=== PATIENT | male | born 1950 | race Caucasian/White ===

== ENCOUNTER 2022-05-08 01:56 | Emergency (ER) | payer MEDICARE, SELFPAY ==
[2022-05-08] VITALS (78 sets, daily range): BP systolic 103–175; BP diastolic 48–88; PULSE 64–105; RESP 1–23; TEMP 37–37.3; O2SAT 83–98
--- NOTE | 2022-05-08 00:30 | RT.EKG_ITS ---
APPROVED REPORT Exam: Resting ECG Reason for Exam: chest pain Patient Location: E HR:91 bpm ECG Measurements Heart Rate 91 AXIS PA 170 P 24 QRSd 86 QRS 66 QT 403 T 26 QTc 498 Conclusion Sinus arrhythmia...V-rate 81-117, variation>10% Rate 91, sinus rhythm, no significant ST elevations or depressions. No STEMI.
--- NOTE | 2022-05-08 00:45 | DI.RAD_ITS ---
Exam(s) XR PORTABLE CHEST AP EXAM: XR PORTABLE CHEST AP CLINICAL HISTORY: chest pain TECHNIQUE: 2D digital imaging was performed. Portable semi-erect. COMPARISON: No exams were available for comparison FINDINGS: Leads are noted over the chest. LUNGS: Clear. No pleural abnormality seen. HEART: Upper limits of normal size. AORTA: Normal diameter. Tortuous. BONES: Degenerative changes in the spine and shoulders. Soft tissues: Unremarkable. IMPRESSION: No acute findings. DATA REPOSITORY: RADIATION DOSE DELIVERED:
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
[2022-05-08 01:04] LABS: Abs Immature Grans 0.09 10^3/uL (0.0-0.06); Absolute Eosinophil Count 0.02 10^3/uL (0.0-0.7); Absolute Lymphocyte Count 1.41 10^3/uL (1.2-3.4); Absolute Monocyte Count 0.67 10^3/uL (0.1-0.8); Basophils % 1.5; Eosinophils % 0.3; HCT 30.4 % (40.0-50.0); Immature Grans % 1.3; Lymphocytes % 21.1; MCH 22.3 pg (27.0-33.0); MCHC 29.6 % (32.0-36.0); MCV 75 fL (80-95); MPV 8.2 fL (8.0-11.0); Neutrophils % 65.8; Platelet Count 325 10^3/uL (130-400); RBC 4.04 10^6/uL (4.36-5.78); RDW 22.7 % (11.8-14.1); RDW-SD 62.8 fL; WBC 6.69 10^3/uL (4.4-10.8)
[2022-05-08] MEDS: Normal Saline 1,000 ML 1000 ML IV (01:05)
[2022-05-08] MEDS: Albuterol/Ipratropium 3 ML UPD VIAL UPD (01:13)
[2022-05-08] MEDS: nitroGLYcerin 0.4 MG TAB SL (01:14)
[2022-05-08 01:18] LABS: PTT Activated 26.5 sec (21.0-27.5); Prothrombin Time 10.2 sec (9.3-11.0)
[2022-05-08 01:20] LABS: Anisocytosis 2+
[2022-05-08 01:26] LABS: ALT 26 U/L (16-63); AST 34 U/L (15-37); Alkaline Phosphatase 103 U/L (46-116); Anion Gap 10.2 mmol/L (3-11); BUN 14 mg/dL (7-18); Bilirubin, Total 0.3 mg/dL (0.2-1.0); CO2 25.8 mmol/L (21.0-32.0); CREATININE 1.2 mg/dL (0.70-1.30); Calcium 8.8 mg/dL (8.5-10.1); Chloride 104 mmol/L (98-107); Estimated GFR 64.65 (mL/min/1.73m2); Glucose 111 mg/dL (74-106); Lipase 110 U/L (73-393); NT-proBNP 586 pg/mL (<300); Potassium 3.7 mmol/L (3.5-5.1); Sodium 140 mmol/L (136-145); Total Protein 8.7 g/dL (6.4-8.2)
[2022-05-08 01:27] LABS: ETHANOL BLOOD 187.9 mg/dL (<10)
[2022-05-08 01:28] LABS: Troponin I 62 ng/L (<or=60)
[2022-05-08] MEDS: MORPHine 4 MG/ML SYR IVP (01:28)
[2022-05-08 01:56] LABS: *AMPHETAMINES SCREEN URINE Negative (Negative); *BARBITURATES SCREEN URINE Negative (Negative); *BENZODIAZEPINES SCREEN URINE Negative (Negative); Cannabinoids THC Negative (Negative); Cocaine Screen,Urine Negative (Negative); METHADONE URINE SCREEN Negative (Negative); OPIATES URINE SCREEN Negative (Negative); Tricyclic Antidepressants Negative (Negative)
--- NOTE | 2022-05-08 02:24 | DI.VRAD_ITS ---
PROCEDURE INFORMATION: Exam: XR Chest Exam date and time: 05/08/2022 1:33 AM Age: 71 years old Clinical indication: Chest pain TECHNIQUE: Imaging protocol: Radiologic exam of the chest. Views: 1 view. COMPARISON: No relevant prior studies available. FINDINGS: Tubes, catheters and devices: Cardiac leads superimposed over the chest. Lungs: No alveolar infiltrate. Pleural spaces: No pneumothorax. No pleural fluid collection. Heart/Mediastinum: Normal heart size. Vasculature: Ectatic thoracic aorta. Bones/joints: Spinal and right shoulder degenerative changes. Old fracture of the right 5th posterior rib. IMPRESSION: No active pulmonary disease. Dictated and Authenticated by: Jluis Falcon MD. Ordering:CINTHYA Cassidy MD
[2022-05-08 04:05] LABS: Troponin I 76 ng/L (<or=60)
--- NOTE | 2022-05-08 04:30 | RT.EKG_ITS ---
APPROVED REPORT Exam: Resting ECG Reason for Exam: nstemi Patient Location: E HR:75 bpm ECG Measurements Heart Rate 75 AXIS OR 158 P 70 QRSd 90 QRS 63 QT 414 T 41 QTc 453 Conclusion Sinus rhythm...normal P axis, V-rate 60- 99 Atrial premature complexes...SV complexes w/ short R-R intvls Physician: stable, no stemi
== END 2022-05-08 07:34 | disposition left against medical advice (07) ==
PROVIDERS: Emergency Provider Student in an Organized Health Care Education/Training Program
DX: F10.120 Alcohol abuse with intoxication, uncomplicated (principal); I21.4 Non-ST elevation (NSTEMI) myocardial infarction; E78.00 Pure hypercholesterolemia, unspecified; J44.9 Chronic obstructive pulmonary disease, unspecified; R77.8 Other specified abnormalities of plasma proteins; R79.89 Other specified abnormal findings of blood chemistry; I35.0 Nonrheumatic aortic (valve) stenosis; I27.20 Pulmonary hypertension, unspecified; Y90.6 Blood alcohol level of 120-199 mg/100 ml; Z53.29 Procedure and treatment not carried out because of patient's decision for other reasons; Z86.73 Personal history of transient ischemic attack (TIA), and cerebral infarction without residual deficits; Z79.899 Other long term (current) drug therapy; F17.210 Nicotine dependence, cigarettes, uncomplicated; I50.89 Other heart failure
CPT/HCPCS: 94640; 36415; 80053; 80307; 83690; 93005; 96361; 96374; 99284; 71045; 80320; 83880; 84484; 85025; 85610; 85730; 93010; 99285; J2270; J7620

== ENCOUNTER 2023-01-27 14:17 | Emergency (ER) | payer OTHER, SELFPAY ==
[2023-01-27] VITALS (35 sets, daily range): BP systolic 122–189; BP diastolic 54–99; PULSE 52–88; RESP 9–18; TEMP 36.8–37; O2SAT 96–100
--- NOTE | 2023-01-27 14:15 | RT.EKG_ITS ---
APPROVED REPORT Exam: Resting ECG Reason for Exam: Cardiac History Patient Location: E HR:59 bpm ECG Measurements Heart Rate 59 AXIS OH 151 P 48 QRSd 90 QRS 53 QT 454 T 53 QTc 435 Conclusion Sinus bradycardia...rate< 60 Atrial premature complexes in couplets...pair SV complexes w/ short R-R Nonspecific T abnormalities, lateral leads...T <-0.10mV, I aVL V5 V6 Sinus bradycardia. When compared to prior 05/08/22 decreased heart rate is noted. WD
[2023-01-27 14:55] LABS: Abs Immature Grans 0.11 10^3/uL (0.0-0.06); Absolute Basophil Count 0.16 10^3/uL (0.0-0.2); Absolute Eosinophil Count 0.03 10^3/uL (0.0-0.7); Absolute Lymphocyte Count 1.44 10^3/uL (1.2-3.4); Absolute Monocyte Count 1.02 10^3/uL (0.1-0.8); Absolute Neutrophil Count 7.03 10^3/uL (1.2-6.7); Basophils % 1.6; Eosinophils % 0.3; HCT 29.5 % (40.0-50.0); HGB 8.4 g/dL (13.5-17.5); Immature Grans % 1.1; Lymphocytes % 14.7; MCH 19.6 pg (27.0-33.0); MCHC 28.5 % (32.0-36.0); MCV 69 fL (80-95); MPV 8.7 fL (8.0-11.0); Monocytes % 10.4; Neutrophils % 71.9; Platelet Count 437 10^3/uL (130-400); RBC 4.28 10^6/uL (4.36-5.78); RDW 29.2 % (11.8-14.1); RDW-SD 70.9 fL; WBC 9.79 10^3/uL (4.4-10.8)
--- NOTE | 2023-01-27 15:00 | DI.RAD_ITS ---
Exam(s) XR PORTABLE CHEST AP EXAM: XR PORTABLE CHEST AP CLINICAL HISTORY: near syncope TECHNIQUE: 2D digital imaging was performed of the chest. One image was obtained. An AP view was ob tained. COMPARISON: CR,XR XR PORTABLE CHEST AP from 05/08/2022 FINDINGS: MEDIASTINUM: Normal. HEART: Normal. PULMONARY VASCULATURE: Normal. LUNGS: Clear. PLEURAL SPACE: No pleural effusion or pneumothorax. BONE:Within normal limits for the patient's age. There is an old right rib fracture. OTHER FINDINGS:Normal. IMPRESSION: No acute pulmonary findings. DATA REPOSITORY: RADIATION DOSE DELIVERED:
[2023-01-27 15:13] LABS: ALT 16 U/L (16-63); AST 16 U/L (15-37); Albumin 3.1 g/dL (3.4-5.0); Alkaline Phosphatase 86 U/L (46-116); Anion Gap 8.4 mmol/L (3-11); BUN 14 mg/dL (7-18); Bilirubin, Total 0.5 mg/dL (0.2-1.0); CO2 26.6 mmol/L (21.0-32.0); CREATININE 1.2 mg/dL (0.70-1.30); Calcium 9.1 mg/dL (8.5-10.1); Chloride 106 mmol/L (98-107); Estimated GFR 64.25 (mL/min/1.73m2); Glucose 89 mg/dL (74-106); Potassium 4.1 mmol/L (3.5-5.1); Sodium 141 mmol/L (136-145); Total Protein 7.4 g/dL (6.4-8.2); Troponin I < 50 ng/L (<or=60)
[2023-01-27 15:17] LABS: Anisocytosis 2+; Diff Comment RBC Morph Reviewed; Hypochromasia 1+; Microcytosis 2+
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
[2023-01-27] MEDS: Atorvastatin 20 MG TAB PO (16:45)
[2023-01-27] MEDS: amLODIPine 5 MG TAB PO (16:45)
[2023-01-27] MEDS: Metoprolol CR 50 MG TABCR PO (16:45)
[2023-01-27] MEDS: Isosorbide Mononitrate 30 MG TABCR 60 MG PO (16:46)
--- NOTE | 2023-01-27 17:15 | RT.EKG_ITS ---
APPROVED REPORT Exam: Resting ECG Reason for Exam: chest pain Patient Location: E HR:62 bpm ECG Measurements Heart Rate 62 AXIS MN 157 P 56 QRSd 84 QRS 66 QT 458 T 63 QTc 465 Conclusion Sinus rhythm...normal P axis, V-rate 60- 99 Normal [place] Normal Electrocardiogram There are no significant changes compared to prior EKG performed on 05/08/2022 at 04:41.
[2023-01-27 18:18] LABS: Troponin I < 50 ng/L (<or=60)
== END 2023-01-27 19:10 ==
PROVIDERS: Emergency Medicine Emergency Medical Services; Emergency Provider Emergency Medicine
DX: R07.9 Chest pain, unspecified (principal); D64.9 Anemia, unspecified; R42 Dizziness and giddiness
CPT/HCPCS: 36415; 80053; 93005; 99285; 71045; 83735; 84484; 85025; 93010; 99284

== ENCOUNTER 2023-02-01 05:04 | Emergency (ER) | payer OTHER, SELFPAY ==
[2023-02-01] VITALS (50 sets, daily range): BP systolic 129–188; BP diastolic 61–79; PULSE 46–61; RESP 8–19; TEMP 36.7; O2SAT 94–100
--- NOTE | 2023-02-01 04:45 | RT.EKG_ITS ---
APPROVED REPORT Exam: Resting ECG Reason for Exam: chest pain Patient Location: E HR:54 bpm ECG Measurements Heart Rate 54 AXIS TX 182 P 54 QRSd 80 QRS 77 QT 429 T 51 QTc 405 Conclusion Sinus bradycardia...rate< 60 Anterior infarct, old...Q >40mS, abnormal ST-T, V2-V5
--- NOTE | 2023-02-01 05:15 | DI.RAD_ITS ---
Exam(s) XR PORTABLE CHEST AP EXAM: XR PORTABLE CHEST AP CLINICAL HISTORY: chest pain. TECHNIQUE: 2D digital imaging was performed. COMPARISON: Prior x-ray 01/27/2023 FINDINGS: Single AP portable view. Heart size is upper normal. The mediastinum is not widened. Lungs are clear. No infiltrates nor obvious pleural effusions. Healed right 5th rib fracture again noted. Also advanced degenerative changes right glenohumeral jaylin nt. IMPRESSION: No acute pulmonary findings on this single AP portable view of the chest. DATA REPOSITORY: RADIATION DOSE DELIVERED:
[2023-02-01 05:23] LABS: Abs Immature Grans 0.06 10^3/uL (0.0-0.06); Absolute Basophil Count 0.15 10^3/uL (0.0-0.2); Absolute Eosinophil Count 0.11 10^3/uL (0.0-0.7); Absolute Lymphocyte Count 1.39 10^3/uL (1.2-3.4); Absolute Monocyte Count 0.72 10^3/uL (0.1-0.8); Absolute Neutrophil Count 2.54 10^3/uL (1.2-6.7); Eosinophils % 2.2; HCT 28.4 % (40.0-50.0); HGB 8.1 g/dL (13.5-17.5); Immature Grans % 1.2; MCH 19.7 pg (27.0-33.0); MCHC 28.5 % (32.0-36.0); MCV 69 fL (80-95); MPV 8.5 fL (8.0-11.0); Monocytes % 14.5; Neutrophils % 51.1; Platelet Count 340 10^3/uL (130-400); RBC 4.12 10^6/uL (4.36-5.78); RDW 27.9 % (11.8-14.1); RDW-SD 67.7 fL; WBC 4.97 10^3/uL (4.4-10.8)
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
[2023-02-01 05:40] LABS: PTT Activated 26.4 sec (21.5-31.9); Prothrombin Time 10.4 sec (9.3-11.0)
[2023-02-01 05:43] LABS: ALT 19 U/L (16-63); AST 18 U/L (15-37); Albumin 3.4 g/dL (3.4-5.0); Alkaline Phosphatase 84 U/L (46-116); Anion Gap 8.7 mmol/L (3-11); BUN 16 mg/dL (7-18); Bilirubin, Total 0.5 mg/dL (0.2-1.0); CO2 26.3 mmol/L (21.0-32.0); CREATININE 1.3 mg/dL (0.70-1.30); Calcium 9.4 mg/dL (8.5-10.1); Chloride 105 mmol/L (98-107); Estimated GFR 58.37 (mL/min/1.73m2); Glucose 99 mg/dL (74-106); Lipase 65 U/L (16-77); Magnesium 1.9 mg/dL (1.8-2.4); Potassium 3.7 mmol/L (3.5-5.1); Sodium 140 mmol/L (136-145); Total Protein 7.4 g/dL (6.4-8.2); Troponin I < 50 ng/L (<or=60)
[2023-02-01 05:55] LABS: Anisocytosis 1+; Diff Comment RBC Morph Reviewed; Microcytosis 2+
[2023-02-01 05:56] LABS: Polychromasia Present
[2023-02-01 06:00] LABS: D-Dimer 430 ng/mlFEU (<500)
--- NOTE | 2023-02-01 07:39 | DI.VRAD_ITS ---
PROCEDURE INFORMATION: Exam: XR Chest Exam date and time: 02/01/2023 5:33 AM Age: 72 years old Clinical indication: Other: Chest pain TECHNIQUE: Imaging protocol: Radiologic exam of the chest. Views: 1 view. COMPARISON: CR XR PORTABLE CHEST AP 01/27/2023 3:18 PM FINDINGS: Lungs: Unremarkable. No consolidation. Pleural spaces: Unremarkable. No pleural effusion. No pneumothorax. Heart/Mediastinum: Unremarkable. No cardiomegaly. Vasculature: Tortuous thoracic aorta. Bones/joints: Healed right posterior rib fracture deformities. Degenerative change of the right shoulder girdle. IMPRESSION: No acute pulmonary disease process. Dictated and Authenticated by: Grecia Reyes MD. Ordering:CLARIBEL Preciado MD
--- NOTE | 2023-02-01 08:37 | W.EDPROG ---
Date of service: 02/01/23 Time of Service: 08:38 Medical Decision Making Signed out by Dr. Porras, please see his documentation regarding initial ED presentation course. Plan at signout was to follow-up on chest x-ray and second troponin. Chest x-ray reviewed and interpreted by me: IMPRESSION: No acute pulmonary findings on this single AP portable view of the chest. I did obtain and review outside hospital records. Patient has had multiple visits of recent to outside hospital emergency departments for similar complaints. Patient did recently have negative stress test 1 to 2 weeks ago. Considered aortic dissection and spoke with the patient about this. He notes he recently had CT imaging of the chest and his aorta is normal. Initial and delta troponin and delta troponin negative. Patient is remained stable. Patient denies pain plan for discharge with outpatient follow-up. Usual customary discharge instructions were reviewed. Sign Out Sign Out Data: Sign Out Comment: 72 yo male with hx of prior cva, states CAD but denies prior stent or cabg, aortic stenosis, [facility] in [facility] with chest pain, initial troponin negative and d dimer negative. IS chronically anemic, guiac negative. REcently admitted to [facility] and states was transfused, awaiting records, will need second troponin and if negative plan for d/c. Also radiology read on xray is still pending Last updated by Ozzy Porras MD at 02/01/23 07:29 Discharge Plan Disposition Patient Disposition: Home Condition: Stable Discharge Details Clinical Impression: Chest pain, Anemia Primary Care Provider: Unknown,Unknown ED Provider: Shad Pearce Home Meds and New Rx's Prescriptions: Continued atorvastatin 20 mg Tablet 20 mg PO DAILY metoprolol succinate 50 mg Tablet Extended Release 24 Hr 50 mg PO DAILY amlodipine 5 mg Tablet 5 mg PO DAILY isosorbide mononitrate 60 mg Tablet Extended Release 24 Hr 60 mg PO DAILY Trelegy Ellipta 100-62.5-25 mcg Blister With Device 100 inh INHALATION DAILY Discharge Instructions Instructions: Chest Pain (ED), Anemia (ED) Additional Instructions: Please contact your primary care physician to arrange follow-up. Please be sure to discuss your anemia. Further work-up in the outpatient setting is warranted. Return to the ER immediately for any worsening or new concerning symptoms.
[2023-02-01 08:46] LABS: Troponin I < 50 ng/L (<or=60)
== END 2023-02-01 10:11 | disposition left against medical advice (07) ==
PROVIDERS: Emergency Medicine; Emergency Provider Student in an Organized Health Care Education/Training Program
DX: R07.9 Chest pain, unspecified (principal); D64.9 Anemia, unspecified; R00.1 Bradycardia, unspecified; I25.10 Atherosclerotic heart disease of native coronary artery without angina pectoris; I25.2 Old myocardial infarction; J44.9 Chronic obstructive pulmonary disease, unspecified; I10 Essential (primary) hypertension; E78.00 Pure hypercholesterolemia, unspecified; Z87.891 Personal history of nicotine dependence; Z53.29 Procedure and treatment not carried out because of patient's decision for other reasons
CPT/HCPCS: 36415; 80053; 83690; 93005; 99284; 71045; 83735; 84484; 85025; 85379; 85610; 85730; 93010; 99283

== ENCOUNTER 2023-02-08 18:15 | Emergency (ER) | payer OTHER, SELFPAY ==
[2023-02-08] VITALS (34 sets, daily range): BP systolic 160–212; BP diastolic 65–123; PULSE 0–106; RESP 8–25; TEMP 36.4; O2SAT 97
--- NOTE | 2023-02-08 18:00 | RT.EKG_ITS ---
APPROVED REPORT Exam: Resting ECG Reason for Exam: SOB Patient Location: E HR:61 bpm ECG Measurements Heart Rate 61 AXIS NM 168 P 61 QRSd 86 QRS 33 QT 423 T 12 QTc 427 Conclusion Sinus rhythm...normal P axis, V-rate 60- 99 narrow complex normal sinus rhythm at a rate of 61. Normal axis. Intervals within normal limits. N o ST segment abnormalities. Prominent T wave in V2 new compared to prior. Prior dated earlier this month. Compared to prior dated May 2022 ECG appears similar.
--- NOTE | 2023-02-08 18:15 | DI.RAD_ITS ---
Exam(s) XR PORTABLE CHEST AP EXAM: XR PORTABLE CHEST AP CLINICAL HISTORY: Chest pain shortness of breath TECHNIQUE: 2D digital imaging was performed of the chest. One image was obtained. An AP view was ob tained. COMPARISON: CR,XR XR PORTABLE CHEST AP from 02/01/2023 FINDINGS: MEDIASTINUM: Normal. HEART: Normal. PULMONARY VASCULATURE: Normal. LUNGS: Clear. PLEURAL SPACE: No pleural effusion or pneumothorax. BONE:Within normal limits for the patient's age. There is an old healed right 5th rib fracture. OTHER FINDINGS:Normal. IMPRESSION: No acute pulmonary findings. DATA REPOSITORY: RADIATION DOSE DELIVERED:
[2023-02-08 18:31] LABS: Abs Immature Grans 0.03 10^3/uL (0.0-0.06); Absolute Basophil Count 0.21 10^3/uL (0.0-0.2); Absolute Eosinophil Count 0.08 10^3/uL (0.0-0.7); Absolute Lymphocyte Count 1.81 10^3/uL (1.2-3.4); Absolute Monocyte Count 0.57 10^3/uL (0.1-0.8); Absolute Neutrophil Count 3.62 10^3/uL (1.2-6.7); Basophils % 3.3; Eosinophils % 1.3; HCT 30.9 % (40.0-50.0); HGB 8.7 g/dL (13.5-17.5); Immature Grans % 0.5; Lymphocytes % 28.6; MCH 19.5 pg (27.0-33.0); MCHC 28.2 % (32.0-36.0); MCV 69 fL (80-95); MPV 8.9 fL (8.0-11.0); Neutrophils % 57.3; Platelet Count 334 10^3/uL (130-400); RBC 4.47 10^6/uL (4.36-5.78); RDW 26.5 % (11.8-14.1); RDW-SD 64.1 fL; WBC 6.32 10^3/uL (4.4-10.8)
[2023-02-08 18:38] LABS: Diff Comment RBC Morph Reviewed
[2023-02-08] MEDS: amLODIPine 5 MG TAB PO (18:38)
[2023-02-08 18:43] LABS: Anisocytosis 2+; Hypochromasia 1+; Microcytosis 2+
[2023-02-08 18:48] LABS: Anion Gap 8.9 mmol/L (3-11); BUN 20 mg/dL (7-18); CO2 26.1 mmol/L (21.0-32.0); CREATININE 1.1 mg/dL (0.70-1.30); Calcium 9.6 mg/dL (8.5-10.1); Chloride 104 mmol/L (98-107); Estimated GFR 71.32 (mL/min/1.73m2); Glucose 108 mg/dL (74-106); Potassium 3.9 mmol/L (3.5-5.1); Sodium 139 mmol/L (136-145); Troponin I < 50 ng/L (<or=60)
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
[2023-02-08 19:04] LABS: D-Dimer 429 ng/mlFEU (<500)
== END 2023-02-08 21:01 | disposition home or self-care (01) ==
PROVIDERS: Emergency Provider Emergency Medicine
DX: R07.9 Chest pain, unspecified (principal); J44.9 Chronic obstructive pulmonary disease, unspecified; G47.33 Obstructive sleep apnea (adult) (pediatric); E78.00 Pure hypercholesterolemia, unspecified; I10 Essential (primary) hypertension; I25.10 Atherosclerotic heart disease of native coronary artery without angina pectoris; F17.210 Nicotine dependence, cigarettes, uncomplicated
CPT/HCPCS: 80048; 93005; 99283; 71045; 84484; 85025; 85379; 93010